=== PATIENT | female | born 1985 | race Caucasian/White ===

== ENCOUNTER 2017-03-28 09:14 | Emergency (ER) | payer OTHER ==
[~2017-03-28] VITALS: Ht 172.7 cm; Wt 138.6 kg
[2017-03-28 09:15] VITALS: BP 136/86
[2017-03-28] MEDS ORDERED: DICL75TA (09:23)
[2017-03-28] MEDS ORDERED: ASTHMANEX (09:23)
[2017-03-28] MEDS ORDERED: [UNRECOGNIZED DRUG - OTHER] (09:23)
[2017-03-28] MEDS ORDERED: MONT10TA2 (09:23)
[2017-03-28] MEDS ORDERED: LORA10TA2 (09:23)
[2017-03-28] MEDS ORDERED: LEVO50TA5 (09:23)
[2017-03-28] MEDS ORDERED: ALBU17IN (09:23)
[2017-03-28] MEDS ORDERED: TOBR0.3S OP (09:41)
== END 2017-03-28 09:45 | disposition home or self-care (01) ==
LOC: M ED 09:14
DX: H10.9 Unspecified conjunctivitis (principal); J45.909 Unspecified asthma, uncomplicated; E03.9 Hypothyroidism, unspecified; Z79.899 Other long term (current) drug therapy; Z91.048 Other nonmedicinal substance allergy status; F17.210 Nicotine dependence, cigarettes, uncomplicated

== ENCOUNTER → 2023-05-19 | Outpatient (REF) | payer OTHER ==
[~2023-05-19] MED LIST: ALBU17IN; ASTHMANEX; DICL75TA; LEVO50TA5; LORA-243; MONT10TA97; TOBR0.3S10 OP; [UNRECOGNIZED DRUG - OTHER]
== END ==
LOC: M SFHCPLAZ 15:02
PROVIDERS: ATTEND Nurse Practitioner Family
DX: L40.9 Psoriasis, unspecified (principal); Z53.9 Procedure and treatment not carried out, unspecified reason